=== PATIENT | male | born 1985 | race Caucasian/White ===

== ENCOUNTER 2017-11-27 10:14 | Inpatient (IN) | payer OTHER ==
[~2017-11-27] VITALS: Ht 180.3 cm; Wt 113.6 kg
[2017-11-27 10:38] LABS: HEMATOCRIT 40.4 % (42-52); HEMOGLOBIN 15.2 g/dL (14.0-18.0); MEAN CELL VOLUME 80.6 fL (80-100); MEAN CORPUSCULAR HEMOGLOBIN 30.3 pg (25-34); MEAN CORPUSCULAR HGB CONC 37.6 g/dl (32-36); MEAN PLATELET VOLUME 11.9 fL (7.4-10.4); NUCLEATED RED BLOOD CELL ABS 0.06 K/uL (0-0); PLATELET COUNT 175 K/uL (130-400); RED CELL DISTRIBUTION WIDTH CV 13.4 % (11.5-14.5); RED CELL DISTRIBUTION WIDTH SD 39.8 fL (36.4-46.3); WHITE BLOOD COUNT 7.39 K/uL (4.8-10.8)
--- NOTE | 2017-11-27 10:43 | DIAGNOSTIC IMAGING REPORT ---
CHEST ONE VIEW PORTABLE HISTORY: Atypical chest pain COMPARISON: None. FINDINGS: The lungs are clear. Cardiac silhouette is normal in size. No pleural effusions. No pneumothorax. IMPRESSION: No acute process. Electronically signed by: Alexis Kearns M.D. 11/27/2017 10:42 AM Dictated Date/Time: 11/27/2017 10:39 AM
[2017-11-27] MEDS ORDERED: NAPR1TAB9 PO (10:58)
[2017-11-27] MEDS ORDERED: ASPECOTC PO (10:58)
[2017-11-27] MEDS ORDERED: SODIUM CHLORIDE 0.9% 1000ML 1,000 ML IV STA (11:14)
[2017-11-27] MEDS ORDERED: ASPIRIN 81 MG CHEW PO STA (11:14)
[2017-11-27] MEDS: NITROGLYCERIN 0.4 MG SL PER TAB CHARGE SL PRN ×2 (11:43→11:51)
[2017-11-27 13:14] LABS: CARBON DIOXIDE 23 mmol/L (21-32)
[2017-11-27 13:31] LABS: ALBUMIN 4.5 gm/dl (3.4-5.0); ALKALINE PHOSPHATASE 87 U/L (45-117); ALT/SGPT 34 U/L (12-78); BLOOD UREA NITROGEN 16 mg/dl (7-18); CALCIUM 9.8 mg/dl (8.5-10.1); CKMB 1.3 ng/ml (0.5-3.6); CREATININE 0.84 mg/dl (0.60-1.40); GLUCOSE 222 mg/dl (70-99); SODIUM 136 mmol/L (136-145); TOTAL PROTEIN 8.3 gm/dl (6.4-8.2)
[2017-11-27] MEDS ORDERED: POLYETHYLENE (MIRALAX) 17 GM PACK PO PRN (15:15)
[2017-11-27] MEDS ORDERED: GLUCOSE 40% GEL 15 GM TUBE PO PRN (15:15)
[2017-11-27] MEDS ORDERED: ONDANSETRON INJ 2 MG/ML 2 ML VIAL IV PRN (15:15)
[2017-11-27] MEDS ORDERED: ZOLPIDEM TARTRATE 5 MG TAB PO PRN (15:15)
[2017-11-27] MEDS ORDERED: NITROGLYCERIN 0.4 MG SL PER TAB CHARGE SL PRN (15:15)
[2017-11-27] MEDS ORDERED: MAGNESIUM HYDROXIDE SUSP 30 ML UDC PO PRN (15:15)
[2017-11-27] MEDS ORDERED: GLUCAGON FOR INJ 1 MG VIAL SQ PRN (15:15)
[2017-11-27] MEDS ORDERED: NITROGLYCERIN OINT 2% 1GM PACKET EXT SCH (15:15)
[2017-11-27] MEDS ORDERED: MoRPHine SULFATE 2 MG/ML CARP IV PRN (15:15)
[2017-11-27] MEDS ORDERED: DEXTROSE 50% 50 ML SYR IV PRN (15:15)
[2017-11-27] MEDS ORDERED: GLUCOSE 10 TABS/TUBE PO PRN (15:15)
[2017-11-27 15:19] LABS: POTASSIUM 4.1 mmol/L (3.5-5.1)
--- NOTE | 2017-11-27 15:34 | History and Physical ---
History & Physical Date & Time of Service: Nov 27, 2017 at 15:18 Chief Complaint: Chest Pain Primary Care Physician: No Doctor, Assigned History of Present Illness Source: patient 52 years old white man with no significant past medical history. 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 Patient said that he did not feel well last night but had no specific symptoms. 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 After his first delivery is not having substernal localized chest pain 5-6 out 10. Pain resolved spontaneously minutes after he rested,. At his second deliveries without. He developed chest pain again a few minutes, same medications in character. History of delivery. Interval developed more intense chest pain in the substernal area repaired both right sides of his chest, also referred to his shoulders , his back in the base of the neck. Associated with some shortness of breath and diaphoresis. He decided to come to the hospital for further evaluation and management. On arrival to the hospital he did not have significant EKG changes. His initial set of troponin was negative, next set of troponin went up slightly. He received aspirin prior to coming to the hospital and received another baby aspirin in the hospital. Chest pain significantly subsided after nitroglycerin. His father had a stent at the age of 50 No other significant past medical history 2 weeks ago he was doing physical exam for his job and he was told that he has high blood pressure slightly high blood sugar. Social History Smoking Status: Former Smoker Allergies Coded Allergies: No Known Allergies (Unverified , 11/27/17) Home Medications Scheduled Aspirin (Aspirin), 325 MG PO 4XWK Naproxen (Aleve), 220 MG PO 3XWK Review of Systems Constitutional: No fever, No chills, No sweats, No weight loss, No weakness, No fatigue, No problem reported Eyes: No worsening of vision, No eye pain, No redness, No discharge, No diplopia, No problem reported ENT: No hearing loss, No unusual epistaxis, No nasal symptoms, No sore throat, No tinnitus, No dental problems, No trouble swallowing, No problem reported Respiratory: + shortness of breath, No cough, No sputum, No wheezing, No dyspnea on exertion, No dyspnea at rest, No hemoptysis, No problem reported Cardiovascular: + chest pain, No orthopnea, No PND, No edema, No claudication, No palpitations, No problem reported Abdomen: No pain, No nausea, No vomiting, No diarrhea, No constipation, No GI bleeding, No problem reported Musculoskeletal: No joint pain, No muscle pain, No swelling, No calf pain, No problem reported Genitourinary - Male: No hematuria, No dysuria, No urinary frequency, No urinary urgency, No urinary hesitancy, No urinary retention, No urinary incontinence, No penile discharge, No lesions, No impotence, No problem reported Neurologic: No memory loss, No paralysis, No weakness, No numbness/tingling, No vertigo, No balance problems, No problem reported Psychiatric: No depression symptoms, No anhedonism, No anxiety, No insomnia, No substance abuse, No problem reported Endocrine: + fatigue, No excessive thirst, No excessive urination, No problem reported Hematologic / Lymphatic: No abnormal bleeding/bruising, No clotting problems, No swollen lymph nodes, No night sweats, No problem reported Integumentary: No rash, No itch, No new/changing skin lesions, No color change , No bleeding, No problem reported Allergic / Immunologic: No environmental allergies, No seasonal allergies, No pet sensitivities, No food allergies, No hives, No frequent infections, No poor healing, No prolonged convalescence, No problem reported Physical Exam Vital Signs Date Time Temp Pulse Resp B/P (MAP) Pulse Ox O2 Delivery O2 Flow Rate FiO2 11/27/17 14:23 59 20 128/92 97 Room Air 11/27/17 13:10 78 11/27/17 13:06 72 16 98 11/27/17 12:58 72 18 136/79 11/27/17 12:36 65 17 97 11/27/17 12:06 69 19 11/27/17 12:01 142/80 11/27/17 11:55 80 18 108/69 96 Room Air 11/27/17 11:54 74 21 96 11/27/17 11:49 136/81 11/27/17 11:46 71 21 96 11/27/17 11:41 73 18 168/86 97 Room Air 168/86 11/27/17 11:05 66 16 97 11/27/17 10:35 67 20 98 11/27/17 10:30 70 18 97 Room Air 11/27/17 10:30 66 18 167/103 97 Room Air 11/27/17 10:30 36.6 67 18 173/115 97 Room Air 11/27/17 10:27 165/106 11/27/17 10:25 67 11/27/17 10:20 173/115 11/27/17 10:19 Room Air General Appearance: WD/WN, no apparent distress Head: normocephalic, atraumatic Eyes: normal inspection, EOMI ENT: normal ENT inspection, hearing grossly normal Neck: supple Respiratory/Chest: chest non-tender, lungs clear, normal breath sounds, no respiratory distress, no accessory muscle use Cardiovascular: regular rate, rhythm, no edema, no gallop, no JVD, no murmur, normal peripheral pulses Abdomen/GI: normal bowel sounds, non tender, soft, no organomegaly, no pulsatile mass Back: normal inspection Extremities/Musculoskelatal: normal inspection, + pertinent finding (some tenderness in right lower ext X 2 months) Neurologic/Psych: 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 as tested, no motor/sensory deficits (has numbness in both fingers and toes), alert, normal mood/affect, normal reflexes, oriented x 3 Skin: normal color, warm/dry, no rash Diagnostics Laboratory Results Results Past 24 Hours Test 11/27/17 10:23 11/27/17 10:25 11/27/17 10:29 11/27/17 11:20 Range/Units Creatine Kinase MB Ratio 0-3.0 White Blood Count 7.39 4.8-10.8 K/uL Red Blood Count 5.01 4.7-6.1 M/uL Hemoglobin 15.2 14.0-18.0 g/dL Hematocrit 40.4 42-52 % Mean Corpuscular Volume 80.6 80-100 fL Mean Corpuscular Hemoglobin 30.3 25-34 pg Mean Corpuscular Hemoglobin Concent 37.6 32-36 g/dl RDW Standard Deviation 39.8 36.4-46.3 fL RDW Coefficient of Variation 13.4 11.5-14.5 % Platelet Count 175 130-400 K/uL Mean Platelet Volume 11.9 7.4-10.4 fL Nucleated RBC Absolute Count (auto) 0.06 0-0 K/uL Nucleated Red Blood Cells % 0.8 % Bedside Troponin I < 0.030 0-0.045 ng/ml Test 11/27/17 11:33 11/27/17 13:40 11/27/17 13:55 Range/Units Sodium Level 136 136-145 mmol/L Potassium Level 3.5-5.1 mmol/L Chloride Level 102 98-107 mmol/L Carbon Dioxide Level 23 21-32 mmol/L Anion Gap 11.0 3-11 mmol/L Blood Urea Nitrogen 16 7-18 mg/dl Creatinine 0.84 0.60-1.40 mg/dl Est Creatinine Clear Calc Drug Dose 163.1 ml/min Estimated GFR () 133.3 Estimated GFR (Non- 115.0 BUN/Creatinine Ratio 18.6 10-20 Random Glucose 222 70-99 mg/dl Calcium Level 9.8 8.5-10.1 mg/dl Total Bilirubin 0.4 0.2-1 mg/dl Aspartate Amino Transf (AST/SGOT) 15-37 U/L Alanine Aminotransferase (ALT/SGPT) 34 12-78 U/L Alkaline Phosphatase 87 45-117 U/L Total Creatine Kinase 39-308 U/L Creatine Kinase MB 1.3 0.5-3.6 ng/ml Creatine Kinase MB Ratio 0-3.0 Total Protein 8.3 6.4-8.2 gm/dl Albumin 4.5 3.4-5.0 gm/dl Globulin 3.8 2.5-4.0 gm/dl Albumin/Globulin Ratio 1.2 0.9-2 Bedside Troponin I 0.050 0-0.045 ng/ml Impression Assessment and Plan 32 years old with no known significant past medical history, but recently was told yearly physical that she has high blood pressure and high blood sugar. Presented with substernal chest pain referred both shoulders and back released by nitroglycerin and rest. 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 Y/N: Yes Risk Level: Moderate
[2017-11-27] MEDS ORDERED: ATORVASTATIN 40 MG TAB PO STA (15:49)
[2017-11-27 16:00] VITALS: BMI 36.2
--- NOTE | 2017-11-27 16:08 | NUR ---
admission assessment completed in ED room A12. call parisi in reach.
[2017-11-27] MEDS: INSULIN ASPART 100 UNITS/ML 3 ML PEN SC SCH ×3 (16:30→21:00)
--- NOTE | 2017-11-27 16:30 | NUR ---
OBS: Patient arrived to room 286-2 at this time via wheelchair from the ED. Patient ambulating with steady gait. Patient c/o continuous chest discomfort/pressure across lower chest/epigastric area and in throat rated 3/10. Pain is unchanged from previous. Medicated with 2mg morphine and 15ml maalox. NS @ 75cc/hr infusing into left hand. NPO except chips/sips. Will continue to monitor.
[2017-11-27] MEDS: SODIUM CHLORIDE 0.9% 1000ML 1,000 ML IV SCH (16:32)
[2017-11-27] MEDS: ALUMINUM/MAGNESIUM/SIMETH (MAALOX MAX) 30 ML UDC PO PRN (16:32)
[2017-11-27 16:42] VITALS: BP 109/69; PULSE 54; TEMP 36.8; O2SAT 97
[2017-11-27] MEDS ORDERED: IV FLUIDS COMPLETED PRN (16:45)
[2017-11-27] MEDS: NITROGLYCERIN 2% OINTMENT 30GM TUBE EXT SCH (18:10)
[2017-11-27 19:36] VITALS: BP 146/68; PULSE 57; TEMP 37; O2SAT 96
[2017-11-27 20:00] VITALS: O2SAT 96
--- NOTE | 2017-11-27 20:00 | NUR ---
OBS: Assessment unchanged, patient resting in bed. Patient reports mild, substernal chest pressure rated 2/10, declines need for pain medication. Encouraged to alert nursing staff if chest pain increases or changes, patient verbalized understanding. Repeat cardiac enzymes pending. Call parisi within reach, will continue to monitor. Addendum: 11/27/17 at 2148 by Keila Martin RN sinus/sinus luzma on the monitor.
[2017-11-27] MEDS ORDERED: NURSING VERBAL MED ORDER ONE (21:15)
--- NOTE | 2017-11-27 21:18 | EMERGENCY ROOM VISIT NOTE ---
ED Visit Note First contact with patient: 10:56 Chief Complaint: Chest pain. History of Present Illness: Mr. Bolanos is a 32 year-old white male who is brought into the ED via ambulance complaining of chest pain. Historically patient reports he has no significant past medical history but does report he had an employer physical approximately one month ago which showed that he was hypertensive and and his blood sugar levels were elevated; they were encouraged to follow-up as contacted a family practice in [facility] but has not been seen. 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 He reports this pain lasted approximately 15 minutes and self resolved. Approximate 45 minutes later it reappeared and lasted for 15 minutes and self resolved. Then at 8 AM the pain restarted and has been constant since. He describes his pain as a combination of sharp and pressure. Currently he rates his discomfort 5/10 but does reports it was as high as 8/10. His pain is radiating across the anterior bilateral chest and into the thoracic back. He has not identified any aggravating or alleviating factors related to the pain. Before contacting EMS he reports he took 2 baby aspirin and 2 cold and sinus tablets because he felt this could possibly be a cold. Associated with his pain he did report he had some diaphoresis at the onset but does report that he does heavy lifting at this job and is unsure feel was related to the pain or his physical activity at work. He did become nauseated but did not vomit. He reports family history is his father of age 56 has coronary artery disease and had a stent placed approximately 1.5 years ago. Patient denies fevers, chills, upper respiratory tract symptoms, wheezing, cough shortness of breath, orthopnea, dependent edema, previous clots, claudication, cramping, recent surgery/inactivity/extended travel, abdominal pain, diarrhea, constipation, rectal bleeding, black/tarry stools, urinary symptoms, back/flank pain. Review of Systems: As noted above in history of present illness. All body systems were reviewed and found to be negative as noted above. Past Medical History: As previously noted. Current Medications: Patient denies. Allergies to Medications: Patient denies. Social History: Patient is currently employed; he lives with his and feels safe in his home environment; previous smoker. Physical Examination: Vital Signs: Date Time Temp Pulse Resp B/P (MAP) Pulse Ox O2 Delivery O2 Flow Rate FiO2 11/27/17 13:10 78 11/27/17 13:06 72 16 98 11/27/17 12:58 72 18 136/79 11/27/17 12:36 65 17 97 11/27/17 12:06 69 19 11/27/17 12:01 142/80 11/27/17 11:55 80 18 108/69 96 Room Air 11/27/17 11:54 74 21 96 11/27/17 11:49 136/81 11/27/17 11:46 71 21 96 11/27/17 11:41 73 18 168/86 97 Room Air 168/86 11/27/17 11:05 66 16 97 11/27/17 10:35 67 20 98 11/27/17 10:30 70 18 97 Room Air 11/27/17 10:30 66 18 167/103 97 Room Air 11/27/17 10:30 36.6 67 18 173/115 97 Room Air 11/27/17 10:27 165/106 11/27/17 10:25 67 11/27/17 10:20 173/115 11/27/17 10:19 Room Air GENERAL: 32-year-old male in mild distress due to pain, nontoxic-appearing, afebrile and hemodynamically stable. NEUROLOGICAL: Awake, alert and oriented to person, place and time. Answering questions appropriately and following commands. Normal gait. Good hand eye coordination. SKIN: Warm, dry and pink. No soft tissue eruptions or trauma noted. HEENT: Atraumatic and normocephalic. PERRLA. Sclera white and conjunctiva pink. Oral cavity moist and pink. Pharynx is nonerythematous or edematous. Speech normal. No lymphadenopathy. Trachea midline. No jugular venous distention. No carotid bruits. BACK: No tenderness over the bony spine. No CVA tenderness. THORAX: Lungs sounds are clear to auscultation and equal bilaterally with symmetrical chest wall. No wheezing, rales or rhonchi. No crepitus, tenderness , subcutaneous air or deformities noted. HEART: Regular rate and rhythm. No gallops, rubs or murmurs are appreciated. No lifts, heaves or thrills. PMI is not displaced. ABDOMEN: Obese, soft and nontender. Positive bowel sounds in all quadrants. No guarding, rigidity or organomegaly. EXTREMITIES: Moves all extremities well on command and with purpose. All distal neurovascular statuses are intact and equal bilaterally. No dependent edema or calf tenderness/cords. ED Course: Patient is assessed as noted above. Laboratory Testing: Test 11/27/17 10:23 11/27/17 10:25 11/27/17 10:29 11/27/17 11:20 Range/Units Creatine Kinase MB Ratio 0-3.0 White Blood Count 7.39 4.8-10.8 K/uL Red Blood Count 5.01 4.7-6.1 M/uL Hemoglobin 15.2 14.0-18.0 g/dL Hematocrit 40.4 42-52 % Mean Corpuscular Volume 80.6 80-100 fL Mean Corpuscular Hemoglobin 30.3 25-34 pg Mean Corpuscular Hemoglobin Concent 37.6 32-36 g/dl RDW Standard Deviation 39.8 36.4-46.3 fL RDW Coefficient of Variation 13.4 11.5-14.5 % Platelet Count 175 130-400 K/uL Mean Platelet Volume 11.9 7.4-10.4 fL Nucleated RBC Absolute Count (auto) 0.06 0-0 K/uL Nucleated Red Blood Cells % 0.8 % Bedside Troponin I < 0.030 0-0.045 ng/ml Test 11/27/17 11:33 11/27/17 13:40 11/27/17 13:55 Range/Units Sodium Level 136 136-145 mmol/L Potassium Level 4.1 3.5-5.1 mmol/L Chloride Level 102 98-107 mmol/L Carbon Dioxide Level 23 21-32 mmol/L Anion Gap 11.0 3-11 mmol/L Blood Urea Nitrogen 16 7-18 mg/dl Creatinine 0.84 0.60-1.40 mg/dl Est Creatinine Clear Calc Drug Dose 163.1 ml/min Estimated GFR () 133.3 Estimated GFR (Non- 115.0 BUN/Creatinine Ratio 18.6 10-20 Random Glucose 222 70-99 mg/dl Calcium Level 9.8 8.5-10.1 mg/dl Total Bilirubin 0.4 0.2-1 mg/dl Aspartate Amino Transf (AST/SGOT) 23 15-37 U/L Alanine Aminotransferase (ALT/SGPT) 34 12-78 U/L Alkaline Phosphatase 87 45-117 U/L Total Creatine Kinase 132 39-308 U/L Creatine Kinase MB 1.3 0.5-3.6 ng/ml Creatine Kinase MB Ratio 0-3.0 Total Protein 8.3 6.4-8.2 gm/dl Albumin 4.5 3.4-5.0 gm/dl Globulin 3.8 2.5-4.0 gm/dl Albumin/Globulin Ratio 1.2 0.9-2 Triglycerides Level 2796 0-150 mg/dl Cholesterol Level 267 0-200 mg/dl HDL Cholesterol 23 mg/dl LDL Cholesterol, Calculated mg/dl VLDL Cholesterol, Calculated mg/dl Cholesterol/HDL Ratio 11.6 Bedside Troponin I 0.050 0-0.045 ng/ml Chest X-Ray: Was read by myself and the radiologist showing no acute infiltrates , effusions or pneumothorax. Normal heart silhouette and bony anatomy. EKG: #1 1018 Was read by myself and reviewed with Dr. Velazquez; normal sinus rhythm with ventricular rate of 62 bpm. Normal axis, intervals and complexes. T wave inversion in lead 3. No signs of ischemic changes. EKG: #2 1301 was read by myself and reviewed with Dr. Velazquez; shows normal sinus rhythm with a ventricular rate of 62 bpm. Normal axis, normal vitals and complexes. Continue T wave inversion in lead 3. No other changes was noted from previous. Patient was hydrated with normal saline and he received for 2 0.4 milligram sublingual nitroglycerin glycerin tablets for his chest pain; after the second tablet he reports he had resolution of his chest discomfort and reported his back pain decreased a level of 2/10. Additionally his blood pressure drops significantly but he did not have any hypotension. Patient was reassessed multiple times during his stay in the emergency department. Patient's case was reviewed with Dr. Velazquez; we agreed on diagnostic approach , treatment, disposition and plan. Patient's second troponin came back elevated at 0.05 from 0.00. Patient's case was consulted with case management and Dr. Michael Sorenson, [facility], for medical observation/admission. Patient was educated about today's findings. Clinical Impression: Chest pain. Elevated troponin. Decision-Making: Initially my differential diagnosis I considered acute coronary syndrome, stable angina, costochondritis, pneumonia, pulmonary embolism and other causes. Disposition and Plan: Patient brought in the hospital for observation/admission by the hospitalist; please see their notes and orders for final disposition and plan.
[2017-11-27 22:35] VITALS: BP 95/53; PULSE 62; TEMP 37; O2SAT 96
[2017-11-28] VITALS (16 sets, daily range): BP systolic 96–157; BP diastolic 52–91; PULSE 54–96; TEMP 36.5–37; O2SAT 94–98; BMI 34.6
--- NOTE | 2017-11-28 | NUR ---
OBS: TROP WAS BUMPED. STAT EKG DONE. HEPARIN GTT INITIATED. RATES CP 01/11. VSS. SB ON TELE. CALL NORTON IN REACH. ON NITROPASTE, NPO FOR CARDIO CONSULT IN AM.
[2017-11-28] MEDS: INSULIN ASPART 100 UNITS/ML 3 ML PEN SC SCH ×5 (00:11→21:13)
[2017-11-28] MEDS: NITROGLYCERIN 2% OINTMENT 30GM TUBE EXT SCH ×5 (00:12→19:56)
[2017-11-28] MEDS ORDERED: HEPARIN 25,000 UNIT/500ML D5W 500 ML IV PRN (00:15)
[2017-11-28 00:48] LABS: BASO % 0.4 %; BASO ABS # 0.03 K/uL (0-0.2); EOS % 1.8 %; EOS ABS # 0.15 K/uL (0-0.5); HEMATOCRIT 36.7 % (42-52); HEMOGLOBIN 13.2 g/dL (14.0-18.0); IG# 0.02 K/uL (0.00-0.02); LYMPH % 23.6 %; LYMPH ABS # 1.96 K/uL (1.2-3.4); MEAN CELL VOLUME 82.1 fL (80-100); MEAN CORPUSCULAR HEMOGLOBIN 29.5 pg (25-34); MEAN PLATELET VOLUME 11.4 fL (7.4-10.4); MONO % 5.4 %; MONO ABS # 0.45 K/uL (0.11-0.59); NEUT % 68.6 %; NEUT ABS # 5.71 K/uL (1.4-6.5); PLATELET COUNT 143 K/uL (130-400); RED CELL DISTRIBUTION WIDTH CV 13.6 % (11.5-14.5); RED CELL DISTRIBUTION WIDTH SD 40.9 fL (36.4-46.3); WHITE BLOOD COUNT 8.32 K/uL (4.8-10.8)
[2017-11-28 00:58] LABS: INR 1.1 (0.9-1.1)
[2017-11-28] MEDS ORDERED: KETOROLAC TROMETHAMINE 15 MG/ML VIAL IV. SCH (02:57)
[2017-11-28] MEDS ORDERED: KETOROLAC TROMETHAMINE 15 MG/ML VIAL ONE (03:04)
[2017-11-28 03:33] LABS: CREATININE 0.95 mg/dl (0.60-1.40)
[2017-11-28 03:37] LABS: POTASSIUM 4.1 mmol/L (3.5-5.1)
[2017-11-28 03:39] LABS: ALBUMIN 3.7 gm/dl (3.4-5.0); CALCIUM 8.6 mg/dl (8.5-10.1); TOTAL PROTEIN 7.1 gm/dl (6.4-8.2)
[2017-11-28 03:42] LABS: BASO % 0.2 %; BASO ABS # 0.02 K/uL (0-0.2); EOS % 1.8 %; EOS ABS # 0.16 K/uL (0-0.5); HEMATOCRIT 37.4 % (42-52); HEMOGLOBIN 12.9 g/dL (14.0-18.0); IG# 0.05 K/uL (0.00-0.02); LYMPH % 26.1 %; LYMPH ABS # 2.36 K/uL (1.2-3.4); MEAN CORPUSCULAR HEMOGLOBIN 28.3 pg (25-34); MEAN CORPUSCULAR HGB CONC 34.5 g/dl (32-36); MEAN PLATELET VOLUME 11.7 fL (7.4-10.4); MONO % 5.6 %; MONO ABS # 0.51 K/uL (0.11-0.59); NEUT % 65.7 %; NEUT ABS # 5.94 K/uL (1.4-6.5); PLATELET COUNT 155 K/uL (130-400); RED CELL DISTRIBUTION WIDTH CV 13.5 % (11.5-14.5); RED CELL DISTRIBUTION WIDTH SD 40.6 fL (36.4-46.3); WHITE BLOOD COUNT 9.04 K/uL (4.8-10.8)
--- NOTE | 2017-11-28 04:00 | NUR ---
OBS: TROP BUMPED AGAIN FROM 2.3 TO 6.06. NOTIFIED. HEPARIN GTT STILL INFUSING. DENIES CP/SOB ON RA. NITROPASTE INTACT. NPO FOR CARDIO CONSULT. VSS. SB ON TELE. CALL N[facility]ON IN REACH.
[2017-11-28 05:07] LABS: HEMOGLOBIN A1C 9.8 % (4.5-5.6)
[2017-11-28] MEDS: SODIUM CHLORIDE 0.9% 1000ML 1,000 ML IV SCH (06:30)
[2017-11-28 07:31] LABS: PTT PATIENT 29.2 SECONDS (21.0-31.0)
--- NOTE | 2017-11-28 08:00 | NUR ---
A/OBS: Patient admitted with chest pain. A&OX4. Denies pain at this time, SOB, N/V. NSS at 75ml/hr infusing. Heparin gtt at 33ml/hr infusing. Nitropaste intact on left upper arm. No edema, positive pulses. NSR on the monitor. Lungs are clear on room air. Abdomen is soft, nontender, nondistended. Positive bowel sounds. Independent in the room. NPO except ice chips and sips. Cardiology consulted. BSG q6h. Pt is from home. Hourly rounding. Encouraged to ring for assistance. Will continue to monitor.
[2017-11-28] MEDS ORDERED: ATORVASTATIN 40 MG TAB PO SCH (09:00)
[2017-11-28] MEDS: ASPIRIN 325 MG ECTAB PO SCH (09:04)
--- NOTE | 2017-11-28 10:10 | CARDIOLOGY CONSULTATION ---
DATE OF CONSULTATION: 11/28/2017 TIME: 09:24 a.m. CONSULTING PHYSICIAN: Dr. Denilson Sorenson. REASON FOR CONSULTATION: Chest pain. HISTORY OF PRESENT ILLNESS: Mr. Bolanos is a pleasant 32-year-old gentleman without a documented past medical history as he does not see a physician on a regular basis. He presented to [facility] with chest discomfort, concerning for angina. 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 He described it more of a pressure or burning sensation. He is not sure if he had shortness of breath, but may have had some. Symptoms resolved within a few minutes after sitting down. Another episode occurred at 07:45 and was described as similar to the first in length and characteristics. A third episode happened at approximately 08:00 a.m. For this episode, the pain was worse in severity and lasted longer, at least 45 minutes. He was also diaphoretic. He once again stated that he may have been short of breath. He sought out medical attention and had nitroglycerin and his symptoms eventually resolved. He admits, however, that he did have some pain overnight. Typically, these symptoms occurred always while doing minimal exertion, when stepping out of his truck into the cold weather with some light walking. The pain overnight, however, happened while hospitalized. His initial ECG did not demonstrate any significant dynamic ST abnormalities. He did have serial troponins, however, which became elevated and he was placed on heparin drip as per the hospitalist service. He is currently chest pain free. He did have some soreness in his back after lying in the bed. He stated that the bed was uncomfortable. Otherwise, he feels well currently. He denies syncope, near syncope, palpitations or edema. He did have some pain in his right leg for the past month or so; however, this has since resolved. He denies melena, hematochezia, hematuria, or other bleeding issues. He has not had any recent viral illness such as diarrhea, nausea, vomiting, bronchitis, cough, or sputum production. He has otherwise been healthy. REVIEW OF SYSTEMS: As above. Review of systems is otherwise negative/unremarkable. PAST MEDICAL HISTORY: No documented past medical history as he does not follow with a physician. HOME MEDICATIONS: He takes aspirin as needed as well as Aleve as needed. No regular medications. INPATIENT MEDICATIONS: Include heparin drip per protocol, aspirin 325 mg daily, Lipitor 40 mg daily, and normal saline 75 mL per hour. SOCIAL HISTORY: Quit smoking in April of 2017. He smoked 1 pack of cigars every 2-3 days. Occasional alcohol. No drugs. and lives at home with his and 1 son. 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 He lives in [place]. FAMILY HISTORY: Father had PCI at the age of 50. Maternal grandfather possibly had an [place] in his 20s. Paternal grandfather had CAD as well. ALLERGIES: No known drug allergies. PHYSICAL EXAMINATION: VITAL SIGNS: Temperature 36.7 degrees, heart rate 56 beats per minute, respiratory rate 16, blood pressure 124/69 mmHg, and oxygen saturation 96% on room air. Weight 112.5 kg. GENERAL: No acute distress. He is alert and oriented. HEENT: Anicteric sclerae. NECK: Thick, but no appreciable JVD. No bruits. Normal carotid upstrokes bilaterally. CARDIAC EXAMINATION: PMI was nonpalpable. There was no ventricular heave. Regular, normal S1 and S2. No audible murmurs, rubs or gallops. LUNGS: Clear to auscultation bilaterally without wheezes, rales or rhonchi. ABDOMEN: Soft, nontender, and nondistended. Normoactive bowel sounds. No bruits noted. EXTREMITIES: 2+ radial pulses bilaterally. Rivas's test is okay. 2+ femoral pulses bilaterally. No bruits. 2+ dorsalis pedis pulses bilaterally. No cyanosis or edema. No palpable cords. PSYCHIATRIC: Affect appears appropriate. LABORATORY DATA: Sodium 136. Potassium was hemolyzed. BUN 16, creatinine 0.84, and glucose 222. Hemoglobin A1c is 9.8. Repeat potassium 4.1. Peak troponin thus far is 6.06 and is still climbing. Albumin 3.7. AST 51 and ALT 30. Triglycerides 2796, total cholesterol 267, and HDL 23. White blood cell count is 9.04, hemoglobin 12.9, and platelets 155. INR 1.1. Chest x-ray reported as no acute process by radiology. ECG personally reviewed as noted above. Repeat ECG at 11/27/2017 at 22:53, sinus bradycardia at 55 beats per minute. Otherwise, normal ECG. Telemetry personally reviewed. No arrhythmias. ASSESSMENT AND PLAN: 1. Acute non-ST elevation myocardial infarction: He had symptoms concerning for angina with climbing troponins and several risk factors for coronary artery disease. Currently, chest pain free. Recommend coronary angiography. Risks and benefits were discussed with him. He was made aware that CT surgery is not available at this facility. He would like to talk it over with his before proceeding at this time. Continue heparin drip as per protocol. Continue aspirin. Continue high intensity statin therapy. Not on beta theresa secondary to resting bradycardia. Risk factor modification strongly recommended. 2. Diabetes: As per primary service. Hemoglobin A1c is significantly elevated. 3. Hypertension: Blood pressure was elevated initially, but it has since normalized. He does not carry a diagnosis of hypertension. 4. Dyslipidemia: Triglycerides are severely elevated. Recommend increasing atorvastatin to 80 mg daily, which will be done at this time. He will likely also require therapy specifically for his elevated triglycerides. A direct LDL level will be added onto his labs. 5. Angina: For recurrent symptoms, he was asked to notify nursing staff immediately. An echocardiogram was also ordered at this time. 6. Disposition: Cardiology will continue to follow. Highly complex medical issues. Coronary angiography is recommended, but is currently not urgent given the fact that he is chest pain free. We will also order a right lower extremity Dopplers given the fact that he has had right lower calf pain to rule out deep venous thrombosis. The patient's care has been discussed with nursing staff. Thank for allowing me to participate in care of Mr. Bolanos. Sincerely,
--- NOTE | 2017-11-28 10:55 | DIAGNOSTIC IMAGING REPORT ---
RIGHT LOWER EXTREMITY VENOUS DOPPLER CLINICAL HISTORY: Right leg pain. COMPARISON STUDY: No previous studies for comparison. TECHNIQUE: Sonography of the deep venous system of the right lower extremity was performed. Compression and augmentation were evaluated. FINDINGS: The common femoral, superficial femoral and popliteal veins were compressible. Augmentation was normal. Flow was shown within the deep calf vessels. IMPRESSION: No evidence of deep venous thrombus within the right lower extremity. Electronically signed by: Ron Rock M.D. 11/28/2017 10:54 AM Dictated Date/Time: 11/28/2017 10:54 AM
--- NOTE | 2017-11-28 11:46 | Hospitalist Progress Note ---
Hospitalist Progress Note Date of Service Nov 28, 2017. Subjective Pt evaluation today including: conversation w/ patient, conversation w/ family , physical exam, chart review, lab review, review of studies, review of inpatient medication list Patient seen and evaluated. Troponins have continued to rise and currently at 6.460. Currently has nitro paste and denies CP. Does have headache since administration of paste. He is hemodynamically stable. Telemetry reviewed and he remains in sinus luzma predominantly. Patient doesn't verbalize any complaints other than being hungry. Doesn't say it but patient does appear fearful. Wanted to discuss heart catheterization with and she is present at bedside. Mostly wanted to know complications so did explain risk of arrhythmia, bleeding, clot, stroke,...Patient is in agreement to go ahead with the catheterization but again just appears fearful. Reports that he thinks his grandmother may have had a PR in her late 20s and appears to have genetic predisposition however uncontrolled sugars are not helping. Constitutional: + problem reported (headache), No fever, No chills Respiratory: No cough, No shortness of breath Cardiovascular: No chest pain, No palpitations Abdomen: No pain, No nausea, No vomiting, No diarrhea, No constipation Musculoskeletal: No swelling Heme: No abnormal bleeding/bruising Medications Current Inpatient Medications Medications (Trade) Dose Ordered Sig/Mindy Route Start Time Stop Time Status Last Admin Dose Admin Sodium Chloride 1,000 ml @ 75 mls/hr [id number] IV 11/27/17 16:30 12/27/17 16:29 11/28/17 06:30 75 MLS/HR Acetaminophen (Tylenol Tab) 650 mg Q4H PRN PO 11/27/17 15:15 12/27/17 15:14 Al Hydrox/Mg Hydrox/Simethicone (Maalox Max Susp) 15 ml Q4H PRN PO 11/27/17 15:15 12/27/17 15:14 11/27/17 16:32 15 ML Magnesium Hydroxide (Milk Of Magnesia Susp) 30 ml Q12H PRN PO 11/27/17 15:15 12/27/17 15:14 Zolpidem Tartrate (Ambien Tab) 5 mg HSZ PRN PO 11/27/17 15:15 12/27/17 15:14 Ondansetron HCl (Zofran Inj) 4 mg Q6H PRN IV 11/27/17 15:15 12/27/17 15:14 Nitroglycerin (Nitrostat Tab) 0.4 mg UD PRN SL 11/27/17 15:15 12/27/17 15:14 Morphine Sulfate (MoRPHine SULFATE INJ) 2 mg Q30M PRN IV 11/27/17 15:15 12/11/17 15:14 11/27/17 16:33 2 MG Aspirin (Ecotrin Tab) 325 mg QAM PO 11/28/17 09:00 12/28/17 08:59 11/28/17 09:04 325 MG Polyethylene (Miralax Powder Packet) 17 gm DAILY PRN PO 11/27/17 15:15 12/27/17 15:14 Glucose (Glucose 40% Gel) 15-30 GRAMS 15 GRAMS... UD PRN PO 11/27/17 15:15 12/27/17 15:14 Glucose (Glucose Chew Tab) 4-8 Tablets 4 Tabl... UD PRN PO 11/27/17 15:15 12/27/17 15:14 Dextrose (Dextrose 50% 50ML Syringe) 25-50ML OF 50% DW IV FOR... UD PRN IV 11/27/17 15:15 12/27/17 15:14 Glucagon (Glucagon Inj) 1 mg UD PRN SQ 11/27/17 15:15 12/27/17 15:14 Nitroglycerin (Nitroglycerin 2% Oint) 1 inch Q6 EXT 11/27/17 18:00 12/27/17 17:59 11/28/17 06:34 1 INCH Miscellaneous (Iv Fluids Completed) 1 ea PRN PRN N/A 11/27/17 16:45 11/27/18 16:44 Insulin Aspart (novoLOG ASPART) SLIDING SCALE If C... Q6H SC 11/28/17 00:00 12/28/17 00:00 11/28/17 06:33 1 UNITS Heparin Sodium/ Dextrose 500 ml @ 33 mls/hr [id number] PRN IV 11/28/17 00:15 12/28/17 00:14 11/28/17 01:17 33 MLS/HR Atorvastatin Calcium (Lipitor Tab) 80 mg QAM PO 11/29/17 09:00 12/28/17 08:59 Objective Vital Signs Date Time Temp Pulse Resp B/P (MAP) Pulse Ox O2 Delivery O2 Flow Rate FiO2 11/28/17 08:08 36.7 56 16 124/69 (87) 96 Room Air 11/28/17 08:00 Room Air 11/28/17 04:00 Room Air 11/28/17 03:40 36.9 57 16 106/63 (77) 95 Room Air 11/28/17 00:21 37.0 54 20 96/54 (68) 96 Room Air 11/28/17 00:00 Room Air 11/27/17 22:35 37.0 62 16 95/53 (67) 96 Room Air 11/27/17 20:00 96 Room Air 11/27/17 19:36 37.0 57 20 146/68 (94) 96 Room Air 11/27/17 16:42 36.8 54 16 109/69 (82) 97 Room Air 11/27/17 16:00 Room Air 11/27/17 15:00 55 18 134/67 97 Room Air 11/27/17 14:41 62 98 11/27/17 14:36 67 97 11/27/17 14:31 64 97 11/27/17 14:26 59 11/27/17 14:23 59 20 128/92 97 Room Air 11/27/17 14:22 128/92 11/27/17 13:10 78 11/27/17 13:06 72 16 98 11/27/17 12:58 72 18 136/79 11/27/17 12:36 65 17 97 11/27/17 12:06 69 19 11/27/17 12:01 142/80 11/27/17 11:55 80 18 108/69 96 Room Air 11/27/17 11:54 74 21 96 11/27/17 11:49 136/81 11/27/17 11:46 71 21 96 Physical Exam General Appearance: WD/WN, no apparent distress Eyes: sclerae normal ENT: hearing grossly normal Neck: supple, no JVD, trachea midline Respiratory/Chest: lungs clear, normal breath sounds, no respiratory distress, no accessory muscle use Cardiovascular: regular rate, rhythm, no gallop, no murmur Abdomen: normal bowel sounds, non tender, soft Extremities: no pedal edema Neurologic/Psychiatric: alert, oriented x 3 Skin: normal color, warm/dry Laboratory Results Last 24 Hours Test 11/27/17 13:40 11/27/17 13:55 11/27/17 16:20 11/27/17 16:32 Bedside Troponin I 0.050 ng/ml Potassium Level 4.1 mmol/L Aspartate Amino Transf (AST/SGOT) 23 U/L Total Creatine Kinase 132 U/L D-Dimer < 190 ug/L FEU Vitamin B12 Level 677 pg/mL Bedside Glucose 190 mg/dl Test 11/27/17 20:24 11/27/17 21:24 11/28/17 00:08 11/28/17 00:39 Bedside Glucose 152 mg/dl 172 mg/dl Total Creatine Kinase 249 U/L Troponin I 2.310 ng/ml White Blood Count 8.32 K/uL Red Blood Count 4.47 M/uL Hemoglobin 13.2 g/dL Hematocrit 36.7 % Mean Corpuscular Volume 82.1 fL Mean Corpuscular Hemoglobin 29.5 pg Mean Corpuscular Hemoglobin Concent 36.0 g/dl Platelet Count 143 K/uL Mean Platelet Volume 11.4 fL Neutrophils (%) (Auto) 68.6 % Lymphocytes (%) (Auto) 23.6 % Monocytes (%) (Auto) 5.4 % Eosinophils (%) (Auto) 1.8 % Basophils (%) (Auto) 0.4 % Neutrophils # (Auto) 5.71 K/uL Lymphocytes # (Auto) 1.96 K/uL Monocytes # (Auto) 0.45 K/uL Eosinophils # (Auto) 0.15 K/uL Basophils # (Auto) 0.03 K/uL RDW Standard Deviation 40.9 fL RDW Coefficient of Variation 13.6 % Immature Granulocyte % (Auto) 0.2 % Immature Granulocyte # (Auto) 0.02 K/uL Prothrombin Time 11.1 SECONDS Prothromb Time International Ratio 1.1 Activated Partial Thromboplast Time 25.0 SECONDS Partial Thromboplastin Ratio 1.0 Test 11/28/17 02:50 11/28/17 03:14 11/28/17 06:07 11/28/17 07:13 Sodium Level 138 mmol/L Potassium Level 4.1 mmol/L Chloride Level 104 mmol/L Carbon Dioxide Level 24 mmol/L Anion Gap 10.0 mmol/L Blood Urea Nitrogen 16 mg/dl Creatinine 0.95 mg/dl Est Creatinine Clear Calc Drug Dose 141.3 ml/min Estimated GFR () 121.4 Estimated GFR (Non- 104.8 BUN/Creatinine Ratio 16.8 Random Glucose 172 mg/dl Calcium Level 8.6 mg/dl Total Bilirubin 0.6 mg/dl Aspartate Amino Transf (AST/SGOT) 51 U/L Alanine Aminotransferase (ALT/SGPT) 30 U/L Alkaline Phosphatase 72 U/L Total Creatine Kinase 319 U/L Troponin I 6.060 ng/ml Total Protein 7.1 gm/dl Albumin 3.7 gm/dl Globulin 3.4 gm/dl Albumin/Globulin Ratio 1.1 White Blood Count 9.04 K/uL Red Blood Count 4.56 M/uL Hemoglobin 12.9 g/dL Hematocrit 37.4 % Mean Corpuscular Volume 82.0 fL Mean Corpuscular Hemoglobin 28.3 pg Mean Corpuscular Hemoglobin Concent 34.5 g/dl Platelet Count 155 K/uL Mean Platelet Volume 11.7 fL Neutrophils (%) (Auto) 65.7 % Lymphocytes (%) (Auto) 26.1 % Monocytes (%) (Auto) 5.6 % Eosinophils (%) (Auto) 1.8 % Basophils (%) (Auto) 0.2 % Neutrophils # (Auto) 5.94 K/uL Lymphocytes # (Auto) 2.36 K/uL Monocytes # (Auto) 0.51 K/uL Eosinophils # (Auto) 0.16 K/uL Basophils # (Auto) 0.02 K/uL RDW Standard Deviation 40.6 fL RDW Coefficient of Variation 13.5 % Immature Granulocyte % (Auto) 0.6 % Immature Granulocyte # (Auto) 0.05 K/uL Estimated Average Glucose 235 mg/dl Hemoglobin A1c 9.8 % Bedside Glucose 170 mg/dl Activated Partial Thromboplast Time 29.2 SECONDS Partial Thromboplastin Ratio 1.1 Test 11/28/17 09:09 Total Creatine Kinase 317 U/L Troponin I 6.460 ng/ml LDL Cholesterol Direct 71 mg/dl Assessment and Plan 32 years old with no known significant past medical history, but recently was told yearly physical that she has high blood pressure and high blood sugar. Presented with substernal chest pain referred both shoulders and back released by nitroglycerin and rest. NSTEMI: - Troponins currently still trending up and currently 6.4 but only minimal increase from 6 hours ago - Echo - EF 55-60%; akinesis of septal base; basal inferior segment hypokinetic - Nitropaste maintained and currently CP free - Significantly elevated triglycerides and cholesterol - Atorvastatin 80 mg daily - ASA 325 mg daily - No BB due to bradycardia - Cardiology following - plan for catherization T2DM: A1c 9.8 - Complains of numbness of fingertips/hands/feet - likely neuropathy - B12 is WNL - leave manager in to see patient - Continue SSI - possible need for D/C on oral anti-diabetics given occupation RLE Pain x 2 Months: - U/S RLE - no evidence of DVT Possible DONIS: STABLE - Recommend outpatient evaluation DVT Prophylaxis: Heparin gtt Code Status: FULL RESUSCITATION Disposition: - Anticipate admission next 1-2 days - pending catheterization Continued [facility] stay due to: multiple IV medications needed Discharge planning: home
--- NOTE | 2017-11-28 12:00 | NUR ---
A/OBS: Patient resting comfortably. A&OX4. Heparin gtt infusing at 33ml/hr. NSS infusing at 75ml/hr. Denies chest pain, SOB, N/V. Assessment complete, unchanged, see EMR. NSR on the monitor. Patient refused nitropaste at noon. Hourly rounding. Encouraged to ring for assistance. Will continue to monitor. Pt will remain NPO at this time. Family is present at bedside.
--- NOTE | 2017-11-28 12:06 | ECHOCARDIOGRAM REPORT ---
*NOTICE TO RECEIVING DEMOCRAT AGENCY This information is strictly Confidential and protected under [place] law. [place] law prohibits you from making any further disclosure of this information unless further disclosure is expressly permitted by the written consent of the person to whom it pertains or is authorized by law. A general authorization for the release of medical or other information is not sufficient for this purpose. Hospital accepts no responsibility if the information is made available to any other person, INCLUDING THE PATIENT. Interpretation Summary * Name: PAUL LEBRON Study Date: 11/28/2017 09:55 AM BP: 124/69 mmHg * Patient Location: [facility]\S\N286\S\2 HR: 58 * : 1985 (M/d/yyyy) Gender: Male Height: 71 in * Age: 32 yrs Ethnicity: [place] Weight: 248 lb * Ordering Physician: Pranav Weiner * Referring Physician: Self, Referred * Performed By: Nora Lee RDCS * * Reason For Study: AMI * BSA: 2.3 m2 * -- Conclusions -- * 1. Top-normal left ventricular size with normal systolic function. EF 55-60%. Akinesis of the septal base. Basal inferior segment appears hypokinetic. No left ventricular hypertrophy. No significant diastolic dysfunction. * 2. The left atrium is moderately dilated. * 3. No significant valvular abnormalities visualized. * 4. Normal estimated right ventricular systolic pressure; 29mmHg. * 5. No prior study available for comparison. Procedure Details * A complete two-dimensional transthoracic echocardiogram was performed (2D, M-mode, Doppler and color flow Doppler). Left Ventricle * Top-normal left ventricular size with normal systolic function. EF 55-60%. Akinesis of the septal base. Basal inferior segment appears hypokinetic. No left ventricular hypertrophy. No significant diastolic dysfunction. Right Ventricle * Right ventricle appears normal in size. Visually, right ventricular systolic function appears reduced, however tissue Doppler and TAPSE suggests normal function. * The right ventricular systolic function is normal as assessed by tricuspid annular plane systolic excursion (TAPSE) (normal >1.5 cm). Atria * The left atrium is moderately dilated. * Right atrial size is normal. * There is no evidence of atrial septal defect, but resolution does not allow assessment for a patent foramen ovale. Mitral Valve * The mitral valve leaflets appear normal. There is no evidence of stenosis, fluttering, or prolapse. * There is trace mitral regurgitation. Tricuspid Valve * The tricuspid valve is not well visualized, but is grossly normal. * There is no tricuspid stenosis. * There is trace tricuspid regurgitation. Aortic Valve * The aortic valve is trileaflet. * No hemodynamically significant valvular aortic stenosis. * No aortic regurgitation is present. Pulmonic Valve * The pulmonary valve is inadequately visualized, but the Doppler data is adequate for interpretation. * There is no pulmonic valvular stenosis. * There is no significant pulmonary regurgitation. Great Vessels * The aortic root is normal size. * Ascending aorta of normal dimension Pericardium/Pleural * There is no pericardial effusion. Great Vessels * Normal pulmonary venous flow pattern. * Normal inferior vena cava size and collapsability with sniff indicates a normal right atrial pressure of 3 mmHg MMode 2D Measurements and Calculations IVSd 1.0 cm IVSs 1.7 cm LVIDd 5.3 cm LVIDs 3.5 cm LVPWd 1.1 cm LVPWs 1.6 cm IVS/LVPW 0.89 FS 35.2 % EDV(Teich) 138.3 ml ESV(Teich) 49.7 ml EF(Teich) 64.0 % EDV(cubed) 153.1 ml ESV(cubed) 41.7 ml EF(cubed) 72.8 % % IVS thick 67.7 % % LVPW thick 37.9 % LV mass(C)d 223.4 grams LV mass(C)dI 96.7 grams/m\S\2 LV mass(C)s 219.1 grams LV mass(C)sI 94.8 grams/m\S\2 SV(Teich) 88.6 ml SI(Teich) 38.3 ml/m\S\2 SV(cubed) 111.4 ml SI(cubed) 48.2 ml/m\S\2 Ao root diam 3.8 cm Ao root area 11.3 cm\S\2 LA dimension 3.6 cm asc Aorta Diam 2.7 cm LA/Ao 0.96 LVAd ap4 32.4 cm\S\2 LVLd ap4 9.0 cm EDV(MOD-sp4) 100.9 ml EDV(sp4-el) 99.2 ml LVAs ap4 19.2 cm\S\2 LVLs ap4 8.2 cm ESV(MOD-sp4) 43.4 ml ESV(sp4-el) 38.2 ml EF(MOD-sp4) 56.9 % EF(sp4-el) 61.5 % LVAd ap2 36.5 cm\S\2 LVLd ap2 9.0 cm EDV(MOD-sp2) 127.6 ml EDV(sp2-el) 125.3 ml LVAs ap2 21.9 cm\S\2 LVLs ap2 8.1 cm ESV(MOD-sp2) 60.1 ml ESV(sp2-el) 50.3 ml EF(MOD-sp2) 52.9 % EF(sp2-el) 59.9 % LVLd %diff 0.75 % EDV(MOD-bp) 113.6 ml LVLs %diff -1.12 % ESV(MOD-bp) 51.1 ml EF(MOD-bp) 55.1 % SV(MOD-sp4) 57.4 ml SI(MOD-sp4) 24.8 ml/m\S\2 SV(MOD-sp2) 67.5 ml SI(MOD-sp2) 29.2 ml/m\S\2 SV(MOD-bp) 62.5 ml SI(MOD-bp) 27.1 ml/m\S\2 SV(sp4-el) 61.1 ml SI(sp4-el) 26.4 ml/m\S\2 SV(sp2-el) 75.0 ml SI(sp2-el) 32.5 ml/m\S\2 Doppler Measurements and Calculations MV E max dory 93.3 cm/sec MV A max dory 49.1 cm/sec MV E/A 1.9 MV dec time 0.25 sec Ao V2 max 118.6 cm/sec Ao max PG 5.6 mmHg Ao max PG (full) 1.3 mmHg LV V1 max PG 4.3 mmHg LV V1 max 104.0 cm/sec PA V2 max 89.2 cm/sec PA max PG 3.2 mmHg TR max dory 254.7 cm/sec RVSP(TR) 28.9 mmHg RAP systole 3.0 mmHg
--- NOTE | 2017-11-28 13:21 | Pre Sedation Assessment ---
Pre Sedation Assessment General Date of Sedation: Nov 28, 2017. Vital Signs Past 12 Hours Date Time Temp Pulse Resp B/P (MAP) Pulse Ox O2 Delivery O2 Flow Rate FiO2 11/28/17 12:00 Room Air 11/28/17 11:51 36.5 64 16 114/63 (80) 97 Room Air 11/28/17 08:08 36.7 56 16 124/69 (87) 96 Room Air 11/28/17 08:00 Room Air 11/28/17 04:00 Room Air 11/28/17 03:40 36.9 57 16 106/63 (77) 95 Room Air Review Cardiovascular: regular rate, rhythm, no murmur Lungs: lungs clear Pre-Sedation Airway Assessment Smoking Status: Former Smoker Hx of Sleep Apnea: No Thyro-mental Distance: > 3 Finger Breadths Oral Cavity: WNL Mallampati Classification: Class I ASA Classification: Class III NPO Status Date of Last Intake of Fluids: Nov 27, 2017 Time of Last Intake of Fluids: 04:00 Date of Last Intake of Solids: Nov 27, 2017 Time of Last Intake of Solids: 04:00 Procedure Planning Contraindications for Sedation: None Notes The planned sedation has been discussed with the patient. Informed Consent was obtained. I have identified the patient, determined the appropriateness of sedation and have assessed the patient immediately prior to the procedure. All medicine(s) and interventions are by my order.
[2017-11-28] MEDS: ACETAMINOPHEN 325 MG TAB PO PRN (13:24)
--- NOTE | 2017-11-28 14:16 | NUR ---
DIABETES: DM care discharge instructions. Click on icon please. Addendum: 11/28/17 at 1416 by Lynda Espinal RN Amended: Links added.
--- NOTE | 2017-11-28 14:29 | NUR ---
DIABETES: Pt seen for elevated A1c 9.8% w/ no previous Hx DM. See DM network and DM teaching interventions. Addendum: 11/28/17 at 1430 by Lynda Espinal RN Amended: Links added.
[2017-11-28] MEDS ORDERED: MIDAZOLAM HCL 1 MG/ML 2ML VIAL ONE ×3 (14:42→16:05)
[2017-11-28] MEDS ORDERED: NiCARDipine HCL INJ 2.5 MG/ML 10 ML AMP ONE (14:42)
[2017-11-28] MEDS ORDERED: FENTANYL CITRATE INJ 50 MCG/1 ML 2 ML VIAL ONE (14:42)
[2017-11-28] MEDS ORDERED: HEPARIN SOD (PORCINE) 1000 UNIT/ML 10 ML VIAL ONE ×2 (14:42→16:46)
[2017-11-28] MEDS ORDERED: NITROGLYCERIN/D5W 100MCG/ML 20ML SYR ONE (14:43)
--- NOTE | 2017-11-28 15:20 | NUR ---
OBS: Patient off floor to laboratory veterinarian at this time. NSR on the monitor.
[2017-11-28 15:31] LABS: PTT PATIENT 28.5 SECONDS (21.0-31.0)
--- NOTE | 2017-11-28 16:45 | NUR ---
OBS: Patient to be transferred to PCU room 240. Report given to Naomi HATCH.
--- NOTE | 2017-11-28 16:54 | Consultant Recommendations ---
Hairspring I Inspector Recommendations Date of Service Nov 28, 2017. Hairspring I Inspector Recommendations ACTIVITY RECOMMENDATIONS: Excess manipulation of the wrist should be avoided for the next 24-48 hours. * No lifting over 2 pounds (approximately a 1/2 gallon of milk) with the utilized arm for 24 hours. * No strenuous activity such as bowling or tennis for 3 days. * Keep the site of the procedure covered with a bandage for 24 hours. *You may shower the day after the procedure. Do not take a tub bath or submerge the puncture site in water for the next 3 days. *Do not operate any motorized equipment for 3 days. SPECIAL CARE INSTRUCTIONS: The site may be slightly bruised and sore following your procedure. Should any of the following occur, contact the Dr. who performed your procedure. 1. Redness/inflammation, swelling, chills, or fever, or colored drainage at procedure site within 3-7 days after your procedure. 2. Coldness, discoloration, ongoing numbness, severe pain, or swelling. Expect mild tingling of hand and tenderness at the puncture site for up to three days. If this persists beyond three days, or other symptoms develop, notify the Dr. who performed your procedure. BLEEDING: If the procedure site on your wrist begins to bleed, do not panic 1. Place 1 or 2 fingers firmly just slightly above the insertion site to stop the bleeding. You may be able to feel your pulse as you hold pressure. 2. Lift your finger after 5 minutes to see if the bleeding has stopped. 3. Once the bleeding has stopped, gently wipe the wrist area clean with a bandage. * If the bleeding from your wrist does not stop after 10 minutes, or if there is a large amount of bleeding or spurting, call 911 (do not drive yourself to the hospital). SKIN IRRITATION: * You may experience some redness and/or swelling in the area where radiation was administered. If any skin irritation occurs, please contact your family physician. FOLLOW UP VISIT: Keep any scheduled doctor appointments.
--- NOTE | 2017-11-28 16:54 | Cardiac Catheterization ---
Procedure Note Procedure Date Nov 28, 2017. Pre-Procedure Diagnosis Non STEMI AUC Score 9 Post-Procedure Diagnosis Severe CAD Procedure(s) Performed Coronary Angiography, Left Heart Cath Innovation Analyst Dr. Weiner Websphere Portal Architect(s) Jona Beyer Estimated Blood Loss < 30 ml Medication(s) Fentanyl, Heparin, Nicardipine, Versed, Lidocaine 1% Summary of Findings Coronary angiography: 1. Left main coronary artery: The LMCA is large in caliber. No angiographic evidence of CAD. 2. Left anterior descending: The LAD is a large caliber vessel that wraps around the apex. Mid LAD 50-70% smooth stenosis involving the ostium of a medium caliber D2 vessel. Very large caliber D1 without CAD. Medium caliber D2 ostial 70%. 2. Circumflex: Codominant vessel. Large caliber. Very large caliber OM1. Medium caliber PDA. No angiographic evidence of CAD within the circumflex, circumflex PDA, or OM1. 3. Right coronary artery: The RCA is a large caliber vessel. Codominant. Proximal RCA 20%. Mid RCA 100% stenosis with CARMINE 0 flow. The occlusion is just distal to a large caliber RV branch. Left to right collaterals were noted. Left heart catheterization: 1. Left ventriculography was not performed as echo was done earlier today. 2. No significant aortic stenosis. 3. Normal LVEDP; 9 mmHg. Sedation start time: 3:40 p.m. Sedation end time: 4:15 p.m. Procedural details: 1. Diagnostic coronary angiography was performed via the right radial artery with 6 [place] JL 3.5 and JR4 diagnostic catheters without known complication. Impression: 1. Severe CAD involving the mid RCA (occluded) with [id number] collaterals. 2. Severe CAD involving the ostial medium caliber D2. 3. Moderate to severe CAD involving the mid LAD. 4. No significant aortic stenosis. 5. Normal LVEDP. Plan: 1. alarm operator, Dr. Fofana, was asked to review the images. He plans on performing PCI of RCA. 2. Aggressive risk factor modification. Hemodynamics Rest Ao: 105/67 Final Ao: 107/68 LV: 105/2/9 Recommendations PCI without planned CABG Specimens None Radiation Exposure (mGy) 1780 mGy. Fluoro time 10 min Contrast (mls) 80 ml Procedural Complication(s) None Disposition remained in cath lab technologist for PCI ACC Data Cardiac Status Clinical evaluation leading to the procedure CAD Presntation: Non STEMI Anginal Classification: CCS IV Heart Failure: No Cardiogenic Shock w/in 24Hrs: No Cardiac Arrest w/in 24Hrs: No Imaging studies past 6 months: Yes (echo) Stress studies past 6 months: No Standard Exercise Stress Test: No Stress Echocardiogram: No Stress Testing w/SPECT MPI: No Cardiac CTA: No Coronary Anatomy Dominant: Co-dominant Left Main (% Stenosis): Normal LAD (% Stenosis): Mid (50-70%) D1 (% Stenosis): Normal D2 (% Stenosis): Ostial (70%) Circumflex (% Stenosis): Normal OM1 (% Stenosis): Normal L PL1 (% Stenosis): Normal RCA (% Stenosis): Proximal (20%), Mid (100%) Left Ventricular Angiography EF (%): n/a Diagnostic Physician's Name: Pranav Weiner MD Status: Elective Closure Device Percutaneous Entry Location: Radial Closure Device: Radial Band Recommendations: PCI without planned CABG
[2017-11-28] MEDS ORDERED: TICAGRELOR 90 MG TAB PO ONE (17:29)
[2017-11-28] MEDS ORDERED: SODIUM CHLORIDE 0.9% 1000ML 1,000 ML IV SCH (17:45)
--- NOTE | 2017-11-28 17:49 | Post Sedation Assessment ---
Post Sedation Assessment General Date of Sedation Nov 28, 2017. Vital Signs: Vital Signs Past 12 Hours Date Time Temp Pulse Resp B/P (MAP) Pulse Ox O2 Delivery O2 Flow Rate FiO2 11/28/17 17:45 64 16 137/78 (97) 100 Room Air 11/28/17 17:30 78 16 157/91 (113) 100 Room Air 11/28/17 15:02 36.9 64 16 106/61 (76) 95 Room Air 11/28/17 12:00 Room Air 11/28/17 11:51 36.5 64 16 114/63 (80) 97 Room Air 11/28/17 08:08 36.7 56 16 124/69 (87) 96 Room Air 11/28/17 08:00 Room Air Post Procedure Recovery Score Activity: (2) Moves 4 extremities * Respiration: (2) Deep breath/cough Circulation: (2) +/-20% PreAnes Value Consciousness: (2) Fully Awake Oxygen Saturation: (2) > 92% On Room Air Post Anesthesia Score: 10 Discharge Sedation Level of Care: Fast Track Phase II Post Sedation Plan On clinical assessment, the patient appears to have tolerated the sedation without complications. Patient is recovering as anticipated. Patient will continue to be monitored by nursing and may be discharged when sedation discharge criteria are met per below protocol. Upon Completions of procedure and additional 15 minutes continue every 5 minute vital signs and the P.A.R. score; then discharge to a Phase I or Fast Track to Phase II per the following guidelines: * Discharge Patient to appropriate Phase II area if PAR is 8 or greater or return to pre- procedure baseline. The post - procedure orders will be as directed. * If PAR score is less than 8 or not return to pre-procedure baseline then patient will follow Phase I monitoring till PAR is reached for Phase II. The Phase I may be done in procedure room or may call to secure a Phase I area. * If naloxone or flumazenil are used for reversal, hold in Phase I for an additional 60 -120 minutes before discharge to Phase II. Please call the Sedation Physician to re-evaluate and complete post-note for discharge to Phase II area. Do NOT discharge from procedure sedation or Phase 1 until post- sedation evaluation note is complete by procedure /sedation MD Sedation Discharge Instructions to be given to the patient at discharge to home.
--- NOTE | 2017-11-28 17:59 | Cardiac Catheterization ---
Procedure Note Procedure Date Nov 28, 2017. Pre-Procedure Diagnosis Non STEMI AUC Score 8 Post-Procedure Diagnosis Severe CAD, Successful PCI Procedure(s) Performed Drug Eluting Stent, Fractional Flow [place] Stamp Pad Finisher Brigido Pond Supervisor(s) Pepito Estimated Blood Loss 20 Medication(s) Fentanyl, Heparin, Nicardipine, Nitroglycerin, Versed, Lidocaine 1% Summary of Findings Indication: High-risk NSTEMI Access: 6Fr slender right radial artery Catheters: JR4 guide, EBU3.5 guide Findings: For full details of patient's coronary angiography please see cath report dictated by Dr. Weiner. Briefly, patient found to have an occluded mid-distal RCA with some evidence of left to right collaterals. Also noted to have an intermediate mid LAD stenosis. -- PCI RCA -- Antithrombotic therapy: heparin, ticagrelor Procedure: RCA cannulated with JR 4 guide Straightening Machine Feeder 50 wire passed across lesion into distal vessel Mid RCA lesion predilated with 2.5 compliant balloon Noted to have diffuse distal disease with a more severe focal distal lesion prior to take-off of R-PDA After additional pre-dilation distal RCA lesion stented with 2.75 x 33 Xience [place] Mid RCA lesion stented with 3.0 x 28 Xience [place] which overlapped the proximal aspect of first stent Stent post-dilated with 3.0 noncompliant balloon IC vasodilators administered for spasm Post procedure CARMINE 3 flow, stent well expanded with minimal residual stenosis and no apparent cardiac complications. -- iFR of mid LAD --- LM cannulated with EBU 3.5 guide iFR placed in distal vessel - iFR 0.96, 0.96, 0.97 Arterial Closure: TR Band Summary: 1. Non-obstructive intermediate mid LAD stenosis by iFR 2. Successful PCI of mid to distal RCA with 2 overlapping [place] (3.0 x 28, 2.75 x 33 Xience) Recommendations: To PCU for continued monitoring Loaded with Ticagrelor in lab support technician Continue dual-antiplatelet therapy for at least 1 year, possibly indefinitely Continue statin, antihypertensives, and ASCVD risk factor modification Consult cardiac Rehab Hemodynamics Rest Ao: 105/67/86 Final Ao: 113/71/92 LV: 109/12 Recommendations PCI without planned CABG Specimens None Radiation Exposure (mGy) 6365 Contrast (mls) 245 Fluids (cc crystalloids) 133 Drains None Anesthesia Moderate Procedural Complication(s) None Disposition PCU ACC Data Cardiac Status Clinical evaluation leading to the procedure CAD Presntation: Non STEMI Anginal Classification: CCS IV Heart Failure: No, NYHA Class: CCS I Cardiogenic Shock w/in 24Hrs: No Cardiac Arrest w/in 24Hrs: No Imaging studies past 6 months: Yes Stress studies past 6 months: No Diagnostic Physician's Name: Pranav Weiner MD Status: Elective Closure Device Percutaneous Entry Location: Femoral Closure Device: Radial Band Recommendations: PCI without planned CABG PCI Indication: PCI for high risk Non-STEMI Lesion Segment Name: Mid - distal RCA Culprit Artery: Yes Stenosis Prior to Rx (%): 100 Chronic Total Occlusion: No IVUS: No FFR: No Pre-Procedure CARMINE Flow: 0 Previously Treated Lesion: No Lesion Complexity: Non-High/Non-C Lesion Length (mm): 35 Thrombus Present: Yes Bifurcation Lesion: No Guidewire Across Lesion: Yes Guidewire: Stenosis Post-Procedure (%): 0 Post-Procedure CARMINE Flow: 3 Device(s) Deployed: Yes Intraprocedure Events Significant Dissection: No Perforation: No
--- NOTE | 2017-11-28 18:00 | NUR ---
A NOTE: PATIENT ARRIVED TO FLOOR FROM TOOL PROCUREMENT COORDINATOR AROUND 1800. VSS. PATIENT A&O X 4, LUNGS CLEAR ON RA. +BS. +PP NO EDEMA. PATIENT DENIES PAIN. AT BEDSIDE. PATIENT ORIENTED TO ROOM CALL NORTON PHONE AND TV. TWO SIDE RAILS UP AND CALL NORTON WITHIN REACH. WILL CONTINUE TO MONITOR.
--- NOTE | 2017-11-28 19:44 | NUR ---
Spoke with Dr. Fofana about active order for Heparin gtt, not currently infusing. States Heparin order should be stopped.
[2017-11-28] MEDS ORDERED: NURSING VERBAL MED ORDER ONE ×2 (19:45→20:15)
[2017-11-28] MEDS: TICAGRELOR 90 MG TAB PO SCH (19:57)
[2017-11-28] MEDS: ALUMINUM/MAGNESIUM/SIMETH (MAALOX MAX) 30 ML UDC PO PRN (19:57)
--- NOTE | 2017-11-28 20:00 | NUR ---
a: Full head to toe assessment completed at this time. financial investment manager intact, displaying SR. Patient denies pain at this time. TR band removed, 2x2 with tegaderm applied. Lungs clear on room air. No edema. Patient eating food brought in by family, visiting with family at bedside. No needs voiced at present time. Refer to EMR for assessment details. Call parisi and bedside table are within reach. Will continue to monitor patient closely.
--- NOTE | 2017-11-28 20:05 | NUR ---
Patient now complains of mild chest pain to the epigastric area with radiation up to the neck. Patient has been refusing Nitropaste because it gives him a headache. EKG obtained around this time with no significant changes. Patient recently consumed meal brought in by family and he does report sometimes getting indigestion after meals. Patient now agreeable to Nitropaste and requested Maalox. Will continue to monitor.
--- NOTE | 2017-11-28 20:30 | NUR ---
Attempted to re-evaluate patient. Patient is on the phone. Patient did not reply to questions while he was on the phone. Will re-evaluate.
--- NOTE | 2017-11-28 21:00 | NUR ---
Attempted to re-evaluate. Patient is in bathroom.
--- NOTE | 2017-11-28 21:45 | NUR ---
Attempted to re-evaluate. Patient on the phone again. Willing to answer questions now, he states that the chest pain is worse, rating it a 2/10. He also has a headache. Will page MD manager documentation.
--- NOTE | 2017-11-28 21:54 | NUR ---
Spoke Dr. Bhakta. Made aware of patient complaints and current interventions. No new orders given at this time. Will offer PRN Morphine.
--- NOTE | 2017-11-28 21:58 | NUR ---
Entered room to offer PRN Morphine. Patient is sleeping. Will offer upon next round when patient is awake.
--- NOTE | 2017-11-29 00:01 | NUR ---
a: Reassessment completed. Patient denies further complaints of chest pain. Denies needs. SR on monitor. No shortness of breath on room air. Patient is independent. IVF infusing per order. Refer to EMR for full assessment details. Call parisi and bedside table are within reach. Will continue to monitor patient closely.
[2017-11-29] MEDS: NITROGLYCERIN 2% OINTMENT 30GM TUBE EXT SCH ×3 (01:34→12:00)
[2017-11-29] MEDS: ACETAMINOPHEN 325 MG TAB PO PRN (03:42)
[2017-11-29 03:46] VITALS: BP 120/74; PULSE 64; TEMP 37; O2SAT 95
--- NOTE | 2017-11-29 03:48 | NUR ---
a: Reassessment completed at this time. Patient denies chest pain. Complains of a headache, 5/10. Given Tylenol. No other complaints. Denies chest pain. IVF finished infusing, SL intact to left hand. VSS. SR on monitor. Refer to EMR for assessment details. Call parisi and bedside table are within reach. Will continue to monitor patient closely.
--- NOTE | 2017-11-29 06:06 | NUR ---
Refused AM dose of Nitropaste. He states his headache has been unresolved since placing nitropaste on. Old patch removed.
[2017-11-29 07:16] LABS: HEMATOCRIT 36.7 % (42-52); HEMOGLOBIN 12.8 g/dL (14.0-18.0); MEAN CELL VOLUME 83.4 fL (80-100); MEAN CORPUSCULAR HEMOGLOBIN 29.1 pg (25-34); MEAN CORPUSCULAR HGB CONC 34.9 g/dl (32-36); MEAN PLATELET VOLUME 11.3 fL (7.4-10.4); PLATELET COUNT 141 K/uL (130-400); RED CELL DISTRIBUTION WIDTH CV 13.7 % (11.5-14.5); RED CELL DISTRIBUTION WIDTH SD 41.3 fL (36.4-46.3); WHITE BLOOD COUNT 6.39 K/uL (4.8-10.8)
[2017-11-29 07:20] VITALS: BP 111/64; PULSE 65; TEMP 36.8; O2SAT 95
[2017-11-29] MEDS: INSULIN ASPART 100 UNITS/ML 3 ML PEN SC SCH ×2 (07:51→12:06)
--- NOTE | 2017-11-29 08:00 | NUR ---
A:ID/ PT ALERT IN BED. CURRENTLY DENIES COMPLAINTS. ASSESSMENT COMPLETED. BEGAN DIABETIC EDUCATION. REINFORCEMENT NEEDED. PLAN IS FOR PATIENT TO RETURN HOME WITH @DISCHARGE. CALL NORTON IN REACH WILL CONT TO MONITOR.
--- NOTE | 2017-11-29 08:31 | NUR ---
Discharge planning. Patient transferred to room 240-2 status post cardiac cath. Plan remains to return home at discharge.
[2017-11-29] MEDS ORDERED: ATORVASTATIN 40 MG TAB PO SCH (09:00)
[2017-11-29] MEDS: TICAGRELOR 90 MG TAB PO SCH (09:39)
[2017-11-29] MEDS: ASPIRIN 325 MG ECTAB PO SCH (09:40)
--- NOTE | 2017-11-29 10:16 | NUR ---
spoke with patient, family at bedside. pt states there are issues with insurance and he needs "samples" of meds to take home until his insurance gets worked out. - passed the information along to case management for discharge needs. will cont to monitor.
[2017-11-29 11:11] VITALS: BP 136/81; PULSE 58; TEMP 36.6; O2SAT 96
--- NOTE | 2017-11-29 12:00 | NUR ---
pt reassessed. awaiting discharge. denies needs at this time. doctors are still working on pt insurance issues. pt is ambulating the halls without difficulty. call parisi in reach will cont to monitor.
[2017-11-29 12:03] VITALS: Ht 180.3 cm; Wt 113.6 kg
--- NOTE | 2017-11-29 12:08 | NUR ---
DIABETES f/u: Pt seen on f/u . See DM Network & DM discharge interventions. Addendum: 11/29/17 at 1209 by Lynda Espinal RN Amended: Links added.
--- NOTE | 2017-11-29 12:36 | NUR ---
clerical grader [facility]: I called [facility] to check on insurance coverage for meds. However,they are unable to process meds thru the insurance. I call [facility] at [phone] pharmacy services and I am told that the pt has rx coverage. I verify that the ID and group # we have on file are correct. I also verify the BIN # [id number], PCN # [id number], and Group is [id number]. I call [facility] back and the pharmacist confirms that he has the correct numbers and tries to reprocess it but it still won't go thru. The pharmacist calls [facility] and then returns my call. The pharmacist tells me that the pt needs to call [facility] Services at [phone]. Addendum: 11/29/17 at 1304 by Xiomara Jackson SERV I call [facility] to ask about pt becoming established w/ a PCP. I am told that the physician will review pt's info and then they will contact him in approximately 1 week regarding their ability to take him as a patient. I discussed this w/ the pt and he is willing to consider [facility]. Their physician, Dr. Sung Ortega, is out of the office until next December 13. They ask me to fax the pt's information to their office and they will schedule the pt upon Dr. Velasquez's return. Addendum: 11/29/17 at 1339 by Xiomara DRAKE Pt has an appt scheduled w/ Kip Rosanne on SatDec 04. This info was added to the DC instructions. Dr. Weiner is providing the pt w/ samples of Brilinta - enough to last until he sees Kip on Dec 04. Pt should have more info about his insurance coverage by then. Addendum: 11/29/17 at 1341 by Xiomara DRAKE I provided the pt w/ my contact info and a Brilinta coupon card. I encourage him to call me w/ any questions or problems. Addendum: 11/29/17 at 1608 by Xiomara Jackson SERV Info faxed to [facility] per the above request.
[2017-11-29] MEDS ORDERED: LPT40 PO (13:44)
[2017-11-29] MEDS ORDERED: BRL90 PO (13:44)
[2017-11-29] MEDS ORDERED: GLC500 PO (13:44)
[2017-11-29] MEDS ORDERED: ASPI-320 PO (13:44)
[2017-11-29] MEDS ORDERED: LISI-730 PO (13:44)
[2017-11-29] MEDS ORDERED: LISINOPRIL 5 MG TAB PO ONE (13:45)
--- NOTE | 2017-11-29 13:56 | Discharge Instructions ---
Discharge Instructions Date of Service Nov 29, 2017. Admission Reason for Admission: NSTEMI (heart attack) Discharge Discharge Diagnosis / Problem: NSTEMI, diabetes, dyslipidemia, hypertriglyceridemia Discharge Goals Goal(s): Improve function, Improve disease control Activity Recommendations Activity Limitations: per Instructions/Follow-up section Lifting Limitations: gradually increase as tolerated Exercise/Sports Limitations: until after follow-up appointment May Resume Sexual Activity: after follow-up appointment Shower/Bathe: no limitations Driving or Machine Use: no limitations . Instructions / Follow-Up Instructions / Follow-Up Medications: - BRILINTA: anti-platelet medication, take twice a day, this prevents clots from forming in the stent, you NEED to take this every day - ASPIRIN: 81mg, take every day, again, prevents clots and future heart attack - LIPITOR: 80mg daily, cholesterol medication, take at night - METFORMIN: 500mg twice a day, wait until next week to start this medication - LISINOPRIL: 5mg daily, this is for heart protection NSTEMI, severe coronary disease: heart cath showed total occlusion of right coronary artery, two stents placed also, there was disease in the LAD artery, no stents needed you have been started on several medications to help reduce risk of future heart attack and also prevent complications of stent thrombosis (clotting) Brilinta and aspirin, you NEED to take these every day Lipitor, likely the most important medication in preventing future heart attack because it stabilizes your plaques in your arteries Lisinopril 5mg daily, cardioprotective, helps maintain function of heart Diabetes type II: will start you on Metformin 500mg twice a day, start on Saturday , can cause some diarrhea but that should go away with time likely will need dose increased to 1000mg twice a day but that can be done by family doctor you received counseling from our outreach educator and information on foods you should try to avoid by reducing intake of complex carbs (breads, pastas, etc) you can dramatically improve your blood sugars overall, try to decrease your calorie intake, eat about 3/4 of what you would normally eat to try to lose weight weight loss of 30 lbs would make diabetes easier to manage Dyslipidemia: low HDL (good cholesterol) and really elevated triglycerides for now, will treat with Lipitor, you may need additional medication for triglycerides but that can be determined at follow up visits FOLLOW UP - Vicente Lay with [facility] cardiology on 12/04/17 - we can continue to help you get set up with a primary care physician Current Hospital Diet Patient's current hospital diet: Regular Diet Discharge Diet Recommended Diet: AHA Diet (Heart Healthy), Diabetes Type 2 Diet Pending Studies Studies pending at discharge: no Laboratory Results Hemoglobin A1c Test 11/28/17 03:14 Range/Units Estimated Average Glucose 235 mg/dl Hemoglobin A1c 9.8 H 4.5-5.6 % Lipid Panel Test 11/27/17 11:33 11/28/17 15:10 Range/Units Triglycerides Level 2796 H 1512 H 0-150 mg/dl Cholesterol Level 267 H 0-200 mg/dl HDL Cholesterol 23 mg/dl Cholesterol/HDL Ratio 11.6 LDL Cholesterol, Calculated mg/dl Work Instructions Return To Work: after follow-up Additional Instructions: should be off for two weeks, allow heart to recover Medical Emergencies . Who to Call and When: Medical Emergencies: If at any time you feel your situation is an emergency, please call 911 immediately. . Non-Emergent Contact Non-Emergency issues call your: Quality Control Coordinator Call Non-Emergent contact if: you have any medication questions . . "Provider Documentation" section prepared by Jaxon Harris. . Domestic Violence Counselor Recommendations Domestic Violence Counselor Recommendations: ACTIVITY RECOMMENDATIONS: Excess manipulation of the wrist should be avoided for the next 24-48 hours. * No lifting over 2 pounds (approximately a 1/2 gallon of milk) with the utilized arm for 24 hours. * No strenuous activity such as bowling or tennis for 3 days. * Keep the site of the procedure covered with a bandage for 24 hours. *You may shower the day after the procedure. Do not take a tub bath or submerge the puncture site in water for the next 3 days. *Do not operate any motorized equipment for 3 days. SPECIAL CARE INSTRUCTIONS: The site may be slightly bruised and sore following your procedure. Should any of the following occur, contact the DrBarrera who performed your procedure. 1. Redness/inflammation, swelling, chills, or fever, or colored drainage at procedure site within 3-7 days after your procedure. 2. Coldness, discoloration, ongoing numbness, severe pain, or swelling. Expect mild tingling of hand and tenderness at the puncture site for up to three days. If this persists beyond three days, or other symptoms develop, notify the Dr. who performed your procedure. BLEEDING: If the procedure site on your wrist begins to bleed, do not panic 1. Place 1 or 2 fingers firmly just slightly above the insertion site to stop the bleeding. You may be able to feel your pulse as you hold pressure. 2. Lift your finger after 5 minutes to see if the bleeding has stopped. 3. Once the bleeding has stopped, gently wipe the wrist area clean with a bandage. * If the bleeding from your wrist does not stop after 10 minutes, or if there is a large amount of bleeding or spurting, call 911 (do not drive yourself to the hospital). SKIN IRRITATION: * You may experience some redness and/or swelling in the area where radiation was administered. If any skin irritation occurs, please contact your family physician. FOLLOW UP VISIT: Keep any scheduled doctor appointments. VTE Core Measure Inpt VTE Proph given/why not?: Other Anticoagulation (heparin drip) [place] Drug Monitoring Program Search Results: no issues identified
--- NOTE | 2017-11-29 13:57 | CARDIOLOGY PROGRESS NOTE ---
DATE: 11/29/2017 TIME: 13:04 p.m. SUBJECTIVE: He denies angina, shortness of breath, syncope, near syncope, palpitations or edema. He has mild soreness at his right radial catheterization site, but has not noted any discharge or significant pain. He has ambulated around his room without angina. He has not yet ambulated in the hallway. The patient navigator is assisting him and trying to obtain medications in affordable peña. He has requested that he follow up with cardiology in the [facility] offices on Tuesdays as that is his normal day off. OBJECTIVE: VITAL SIGNS: Temperature 36.6 degrees, heart rate 58 beats per minute, respiratory rate 17, blood pressure 136/81 mmHg, and oxygen saturation is 96% on room air. Weight 113.6 kg. GENERAL: In no acute distress. He is alert. NECK: No JVD. CARDIAC EXAM: No ventricular heave. Regular, normal S1 and S2. There are no audible murmurs, rubs or gallops. LUNGS: Clear to auscultation bilaterally without wheezes, rales or rhonchi. ABDOMEN: Soft and nondistended. Normoactive bowel sounds. No bruits noted. Nontender. EXTREMITIES: Right radial catheterization site is clean, dry and intact without erythema or discharge. 2+ right radial pulse. No cyanosis or edema. MEDICATIONS: Include aspirin 325 mg daily, Lipitor 80 mg daily, ticagrelor 90 mg p.o. b.i.d. and atorvastatin 80 mg daily. TELEMETRY: Personally reviewed. No arrhythmias. Cardiac catheterization results from 11/28/2017: Mid LAD 50%-70%. Ostial D2 at 70%. Proximal RCA 20%. Mid RCA 100%. Left to right collaterals. LVEDP 9. No aortic stenosis. The patient underwent mid RCA PCI with a 3 x 28-mm drug-eluting stent and 2.7 x 33-mm drug-eluting Xience stent. IFR was performed to the mid LAD and was negative. LABORATORIES: White blood cell count is 6.39, hemoglobin 12.8, and platelets 141. Peak troponin was 6.460 and it has since trended downward. Repeat triglyceride level was 1512 down from 2796. Most recent glucose was 183. ECG at 11/28/2017 at 19:24, sinus rhythm at 68 beats per minute. ASSESSMENT AND PLAN: 1. Non-ST elevation myocardial infarction: No further angina. He underwent PCI of his mid RCA with 2 drug-eluting stents. Continue dual antiplatelet therapy. Aspirin 81 mg daily indefinitely. Ideally, dual antiplatelet therapy for at least 1 year. Continue high intensity statin therapy. Cardiac rehabilitation is recommended. 2. Antiplatelet therapy: Due to financial concerns for his medications, case management is looking into the financially available options for him. For now, he will be supplied with Brilinta samples with a discount card. He was advised that if he cannot afford any of the medications to contact the office immediately for assistance. 3. Coronary artery disease, status post percutaneous coronary intervention: Medical therapy as above. He is not on a beta theresa due to resting bradycardia intermittently. If his heart rate will allow in the future, would recommend a low dose beta theresa. We will start a low dose WIN inhibitor. Continue high intensity statin therapy. 4. Hypertension: Blood pressure is mostly normotensive and occasionally mildly hypertensive. We will start low dose WIN inhibitor, lisinopril 5 mg daily, which also may offer some benefit given his diabetes. 5. Diabetes: Treatment as per primary service. Diet and exercise was also recommended. It is recommended that he maintain a low fat, low carbohydrate, and low cholesterol diet. Mediterranean diet was suggested. 6. Dyslipidemia: Mediterranean diet recommended. Continue high intensity statin therapy. He may require fenofibrate treatment as well for his hypertriglyceridemia, but this can be done as an outpatient after initial response to lifestyle adjustments and statin therapy can be assessed. 7. Disposition: He would like to follow up in the [facility] for cardiology. He is requesting to be seen on Tuesdays as that is his normal day off. Cardiology appointment will be arranged for him through the outpatient setting and has already been discussed with outpatient nursing staff. He should have enough samples of Brilinta to last him through his first appointment in the outpatient setting, which will give he and his time to find out the financial burden of Brilinta and his other medications. If Plavix ends up being a better option fpc for him, could replace Brilinta with Plavix after loading with 300 mg of Plavix and then continuing at 75 mg daily. The patient's care has been discussed with Dr. Harris of the primary hospitalist service as well as the nurse navigator, Raine. If he can tolerate ambulation in the hallways without symptoms, he can be discharged later today from a cardiology perspective.
[2017-11-29 14:07] VITALS: BP 136/81; PULSE 58; TEMP 36.6; O2SAT 96
--- NOTE | 2017-11-29 14:40 | NUR ---
PT DISCHARGED INSTRUCTIONS REVIEWED WITH PATIENT AND . QUESTIONS ANSWERED. IV D/C'D INTACT. PT REFUSED TRANSPORT TO CAR - AMBULATED TO ELEVATOR WITH STEADY GAIT.
--- NOTE | 2017-11-30 08:30 | Discharge Summary ---
Discharge Summary Date of Service Nov 29, 2017. Discharge Summary Admission Date: Nov 28, 2017 at 17:01 Discharge Date: Nov 29, 2017 Discharge Disposition: Home Principal Diagnosis: NSTEMI Problems/Secondary Diagnoses: Coronary artery disease Dyslipidemia, elevated TG, low HDL DM type II Obesity Procedures: Left Heart Catheterization: occlusion of RCA, two EVERTON placed, significant disease in the LAD but no stent required, see cath report for full details Consultations: Cardiology para educator Medication Reconciliation New Medications: Metformin HCl (Metformin HCl) 500 Mg Tab 500 MG PO BID for 30 Days, #60 TABS 3 Refills Aspirin (Aspirin EC Low Dose) 81 Mg Ectab 81 MG PO QAM, #30 TABS 3 Refills Atorvastatin (Atorvastatin Calcium) 40 Mg Tab 80 MG PO QAM, #60 TAB 3 Refills Lisinopril (Lisinopril) 5 Mg Tab 5 MG PO QAM, #30 TAB 3 Refills Ticagrelor (Brilinta) 90 Mg Tab 90 MG PO BID, #60 TAB 3 Refills Continued Medications: Naproxen (Aleve) 220 Mg Tab 220 MG PO 3XWK, TAB PRN Discontinued Medications: Aspirin (Aspirin) 325 Mg Tab 325 MG PO 4XWK PRN Discharge Exam Patient feeling well, no chest pain or pressure, ambulated a few laps around the RN station with no angina symptoms. Real issues were social and insurance. Was able to get medications approved from [facility] pharmacy, total cost would be $50 and he was given a coupon for Brilinta. Prior to going home he would get Brilinta samples. Long talk with patient and his family about lifestyle changes with diabetes and coronary disease, strive for weight loss, glucose control, limiting cholesterol intake. He plans to have close follow up with [facility] cardiology next week and will establish with a PCP in [place] in two weeks. Discussed that he can drive, but no strenuous activity for two weeks, allow heart to recover. Review of Systems: Constitutional: No fever, No chills, No sweats, No weight loss, No weakness , No fatigue, No problem reported Eyes: No worsening of vision, No eye pain, No redness, No discharge, No diplopia, No problem reported ENT: No hearing loss, No unusual epistaxis, No nasal symptoms, No sore throat, No tinnitus, No dental problems, No trouble swallowing, No problem reported Respiratory: No cough, No sputum, No wheezing, No shortness of breath, No dyspnea on exertion, No dyspnea at rest, No hemoptysis, No problem reported Cardiovascular: No chest pain, No orthopnea, No PND, No edema, No claudication, No palpitations, No problem reported Abdomen: No pain, No nausea, No vomiting, No diarrhea, No constipation, No GI bleeding, No problem reported Musculoskeletal: No joint pain, No muscle pain, No swelling, No calf pain, No problem reported Genitourinary - Male: No hematuria, No dysuria, No urinary frequency, No urinary urgency Neurologic: No memory loss, No paralysis, No weakness, No numbness/tingling , No vertigo, No balance problems, No problem reported Psychiatric: No depression symptoms, No anhedonism, No anxiety, No insomnia , No substance abuse, No problem reported Endocrine: No fatigue, No excessive thirst, No excessive urination, No problem reported Hematologic / Lymphatic: No abnormal bleeding/bruising, No clotting problems , No swollen lymph nodes, No night sweats, No problem reported Integumentary: No rash, No itch, No new/changing skin lesions, No color change, No bleeding, No problem reported Physical Exam: General Appearance: WD/WN, no apparent distress Eyes: normal inspection, EOMI, sclerae normal ENT: normal ENT inspection, hearing grossly normal, pharynx normal Neck: supple, no adenopathy, no JVD, trachea midline Respiratory/Chest: chest non-tender, lungs clear, normal breath sounds, no respiratory distress, no accessory muscle use Cardiovascular: regular rate, rhythm, no edema, no gallop, no JVD, no murmur , normal peripheral pulses Abdomen / GI: normal bowel sounds, non tender, soft, no organomegaly Extremities: normal inspection, no calf tenderness, normal capillary refill , no pedal edema, normal range of motion, pelvis stable 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 Found to have elevated troponin of 2 and then 6[address] No obvious ST changes so it was considered NSTEMI. Taken for [facility] and found to have occluded RCA, two EVERTON placed. - NSTEMI: [facility] 11/28 with EVERTON to the RCA, also found disease in the LAD continue dual antiplatelet therapy, Brilinta and Aspirin Lipitor 80mg daily Lisinopril 5mg daily no beta theresa due to resting bradycardia will have close follow up with cardiology on 12/04/17 stressed the importance of taking all of his medications, especially dual antiplatelets with his stent - DM type II: most likely type II given age, obesity and lack of polyuria, polydipsia HbA1c is 9.8 will start Metformin 500mg BID on 12/02/17 will need to establish with a PCP discussed dietary changed, weight loss - Dyslipidemia, hypertriglyceridemia: start on Lipitor 80mg daily may require fenofibrate as well but that can wait HDL low at 23 Total Time Spent: Greater than 30 minutes This includes examination of the patient, discharge planning, medication reconciliation, and communication with other providers. Discharge Instructions Please refer to the electronic Patient Visit Report (Discharge Instructions) for additional information. Follow-Up Vicente Lay on 12/04/17 Additional Copies To Mitchel Fofana MD; Vicente Lay.,P.A.; Pranav Weiner MD
[2017-11-30] MEDS ORDERED: ASPIRIN 81 MG ECTAB PO SCH (09:00)
[2017-11-30] MEDS ORDERED: LISINOPRIL 5 MG TAB PO SCH (09:00)
--- NOTE | 2017-12-24 16:03 | NUR ---
f/u call to see how pt is doing. He states he feels he is doing well. Reports he is on 1/2 pill of metformin & BS a little high due to being ill & he was told to stop metformin x 2 days then. He states BS was 209 FBS & then 141 after cardiac rehab. He has not seen a PCP yet & states he was having trouble getting office to call him back but now he states he has an appt 01/07. Denies need for anything else. Reminded he can call CDE or come for OP help if needed. Pt states he would but distance is too much & would need to get [facility] to attend in [place].
== END 2017-11-29 14:47 | disposition home or self-care (01) | DRG 247 ==
LOC: EDBD 10:14 → C.EDA 10:16 → C.MED 15:18 → ENRESERV 15:43 → EDBEDREQ 11-28 16:07 → ENRESERV 11-28 16:11 → OBSVTOIN 11-28 17:01 → C.2T 11-28 17:55
PROVIDERS: ADMIT Internal Medicine; ATTEND Internal Medicine
PROC: 4A023N7 Measurement of Cardiac Sampling and Pressure, Left Heart, Percutaneous Approach (ICD-10-PCS; 2017-11-28)
PROC: B2111ZZ Fluoroscopy of Multiple Coronary Arteries using Low Osmolar Contrast (ICD-10-PCS; 2017-11-28)
PROC: 4A033BC Measurement of Arterial Pressure, Coronary, Percutaneous Approach (ICD-10-PCS; principal; 2017-11-28 13:58)
PROC: 027034Z Dilation of Coronary Artery, One Artery with Drug-eluting Intraluminal Device, Percutaneous Approach (ICD-10-PCS; principal; 2017-11-28 13:58)
PROC: 3E033PZ Introduction of Platelet Inhibitor into Peripheral Vein, Percutaneous Approach (ICD-10-PCS; principal; 2017-11-28 13:58)
DX: I21.4 Non-ST elevation (NSTEMI) myocardial infarction (principal); I25.119 Atherosclerotic heart disease of native coronary artery with unspecified angina pectoris; Z87.891 Personal history of nicotine dependence; Z79.82 Long term (current) use of aspirin; E78.5 Hyperlipidemia, unspecified; E11.9 Type 2 diabetes mellitus without complications; E66.9 Obesity, unspecified